=== PATIENT | female | born 1955 | race Asian ===

== ENCOUNTER 2018-01-24 17:07 | Emergency (ER) | payer OTHER ==
[~2018-01-24] VITALS: Ht 165.1 cm; Wt 82.1 kg
[2018-01-24 17:13] VITALS: Ht 165.1 cm; Wt 82.1 kg
[2018-01-24 19:49] VITALS: BP 132/82
== END 2018-01-24 19:49 | disposition home or self-care (01) ==
LOC: ED 17:07
DX: S52.501A Unspecified fracture of the lower end of right radius, initial encounter for closed fracture (principal); W18.39XA Other fall on same level, initial encounter; Y93.89 Activity, other specified; Y92.89 Other specified places as the place of occurrence of the external cause; Y99.8 Other external cause status
CPT/HCPCS: J2001; Q0092